=== PATIENT | female | born 1950 | race Caucasian/White ===

== ENCOUNTER 2017-12-14 12:51 | Emergency (ER) | payer MEDICARE, OTHER ==
[2017-12-14] MEDS: LORAZEPAM 2 MG INJ IV ×2 (15:38→16:39)
[2017-12-14] MEDS: DIPHENHYDRAMINE 50 MG INJ IV (15:38)
== END 2017-12-14 17:07 | disposition home or self-care (01) ==
LOC: FTE 12:51
DX: F41.9 Anxiety disorder, unspecified (principal); E11.9 Type 2 diabetes mellitus without complications; J44.9 Chronic obstructive pulmonary disease, unspecified
CPT/HCPCS: 96374; 96375; 96376; 99284-25

== ENCOUNTER 2018-01-04 21:31 | Inpatient (IN) | payer MEDICARE, OTHER ==
[2018-01-04 22:23] LABS: ADD MAN DIFF? NO
[2018-01-04 22:28] LABS: BASOPHIL # 0.1 10^3/ul (0.0-0.1); BASOPHILS % 0.4 % (0.0-2.0); EOSINOPHILS # 0.5 10^3/ul (0.0-0.5); EOSINOPHILS % 4.8 % (0.0-7.0); HEMATOCRIT 37.8 % (37.0-47.0); HEMOGLOBIN 11.5 g/dl (12.0-16.0); LYMPHOCYTES # 1.4 10^3/ul (0.8-2.9); LYMPHOCYTES % 12.3 % (15.0-51.0); MEAN CORPUSCULAR HEMOGLOBIN 26.7 pg (29.0-33.0); MEAN CORPUSCULAR HGB CONC 30.4 g/dl (32.0-37.0); MEAN CORPUSCULAR VOLUME 87.9 fl (82.0-101.0); MONOCYTE # 0.8 10^3/ul (0.3-0.9); NEUTROPHIL # 8.5 10^3/ul (1.6-7.5); NEUTROPHILS % 75.1 % (39.0-77.0); PLATELET COUNT 374 10^3/UL (140-415); RED CELL DISTRIBUTION WIDTH 15.5 % (11.5-14.5)
[2018-01-04 22:28] LABS: WHITE BLOOD COUNT 11.3 10^3/ul (4.8-10.8)
[2018-01-04] MEDS: SOD CHLORIDE 0.9% 1,000 ML IV (22:37)
[2018-01-04] MEDS: ONDANSETRON 4 MG INJ IV (22:38)
[2018-01-04 22:46] LABS: LACTIC ACID 0.8 mmol/L (0.5-2.0)
[2018-01-04 22:46] LABS: ALANINE AMINOTRANSFERASE 25 IU/L (13-69); ALBUMIN 3.5 g/dl (3.3-4.9); ALBUMIN/GLOBULIN RATIO 1.29; ALKALINE PHOSPHATASE 86 IU/L (42-121); ANION GAP 12 (8-16); ASPARTATE AMINO TRANSFERASE 23 IU/L (15-46); BILIRUBIN,INDIRECT 0.5 mg/dl (0-1.1); BILIRUBIN,TOTAL 0.5 mg/dl (0.2-1.3); BLOOD UREA NITROGEN 19 mg/dl (7-20); CALCIUM 9.7 mg/dl (8.4-10.2); CARBON DIOXIDE 31 mmol/L (21-31); CHLORIDE 104 mmol/L (97-110); CREATININE 1.38 mg/dl (0.44-1.00); GLUCOSE 109 mg/dl (70-220); LIPASE 167 U/L (23-300); POTASSIUM 3.5 mmol/L (3.5-5.1); SODIUM 143 mmol/L (135-144); TOTAL PROTEIN 6.2 g/dl (6.1-8.1)
[2018-01-04 22:56] LABS: ADD UMIC YES; UR ASCORBIC ACID NEGATIVE (NEGATIVE); UR BILIRUBIN (Dip) NEGATIVE (NEGATIVE); UR BLOOD (Dip) 1+ mg/dL (NEGATIVE); UR CLARITY SLIGHTLY CLOUDY (CLEAR); UR COLOR YELLOW (YELLOW); UR GLUCOSE (Dip) NEGATIVE (NEGATIVE); UR KETONES (Dip) TRACE mg/dL (NEGATIVE); UR LEUKOCYTE ESTERASE (Dip) 1+ Leu/ul (NEGATIVE); UR MUCUS FEW /HPF (NONE SEEN); UR NITRITE (Dip) NEGATIVE (NEGATIVE); UR RBC 2 /HPF (0-5); UR SPECIFIC GRAVITY (Dip) 1.021 (1.003-1.030); UR TOTAL PROTEIN (Dip) 1+ mg/dl (NEGATIVE); UR UROBILINOGEN (Dip) 1+ mg/dL (NEGATIVE); UR WBC 24 /HPF (0-5)
[2018-01-04 22:58] LABS: TROPONIN-I < 0.012 ng/ml (0.00-0.12)
[2018-01-05] MEDS: CEFEPIME 1GM/50 ML (PMX) 50 ML IVPB (00:10)
[2018-01-05] MEDS ORDERED: morphine 2 MG INJ IV (00:30)
[2018-01-05] MEDS ORDERED: ONDANSETRON 4 MG INJ IV (00:30)
[2018-01-05] MEDS ORDERED: NACL 0.9% 3 ML SYG IV (00:30)
[2018-01-05] MEDS ORDERED: ALBUTEROL HFA 8 GM INHALER INH (00:30)
[2018-01-05] MEDS ORDERED: HYDROCODONE/APAP (5/325) TAB PO (00:30)
[2018-01-05] MEDS ORDERED: ACETAMINOPHEN 325 MG TAB PO ×2 (00:30)
[2018-01-05] MEDS ORDERED: MAGNESIUM HYDROXIDE 30ML CUP PO (00:30)
[2018-01-05] MEDS ORDERED: DOCUSATE SODIUM 100 MG CAP PO (00:30)
[2018-01-05] MEDS: LORAZEPAM 2 MG INJ IV ×2 (01:06→01:07)
[2018-01-05] MEDS: SOD CHLORIDE 0.9% 1,000 ML IV ×2 (03:51→12:13)
[2018-01-05] MEDS ORDERED: PANTOPRAZOLE (EC) 40 MG TAB PO (06:00)
[2018-01-05 06:10] LABS: ADD MAN DIFF? NO
[2018-01-05 06:14] LABS: BASOPHILS % 0.4 % (0.0-2.0); EOSINOPHILS # 0.5 10^3/ul (0.0-0.5); EOSINOPHILS % 5.2 % (0.0-7.0); HEMATOCRIT 35.3 % (37.0-47.0); HEMOGLOBIN 10.7 g/dl (12.0-16.0); LYMPHOCYTES # 1.7 10^3/ul (0.8-2.9); MEAN CORPUSCULAR HEMOGLOBIN 26.9 pg (29.0-33.0); MEAN CORPUSCULAR HGB CONC 30.3 g/dl (32.0-37.0); MEAN CORPUSCULAR VOLUME 88.7 fl (82.0-101.0); MEAN PLATELET VOLUME 9.9 fl (7.4-10.4); MONOCYTE # 0.9 10^3/ul (0.3-0.9); MONOCYTES % 8.9 % (0.0-11.0); NEUTROPHIL # 7.2 10^3/ul (1.6-7.5); NEUTROPHILS % 69.2 % (39.0-77.0); PLATELET COUNT 337 10^3/UL (140-415); RED BLOOD COUNT 3.98 10^6/ul (4.20-5.40); RED CELL DISTRIBUTION WIDTH 15.3 % (11.5-14.5)
[2018-01-05 06:14] LABS: WHITE BLOOD COUNT 10.4 10^3/ul (4.8-10.8)
[2018-01-05 06:35] LABS: ANION GAP 12 (8-16)
[2018-01-05 06:38] LABS: ALANINE AMINOTRANSFERASE 24 IU/L (13-69); ALBUMIN 3.4 g/dl (3.3-4.9); ALBUMIN/GLOBULIN RATIO 1.36; ALKALINE PHOSPHATASE 81 IU/L (42-121); ASPARTATE AMINO TRANSFERASE 21 IU/L (15-46); BILIRUBIN,INDIRECT 0.5 mg/dl (0-1.1); BILIRUBIN,TOTAL 0.5 mg/dl (0.2-1.3); BLOOD UREA NITROGEN 16 mg/dl (7-20); CALCIUM 9.3 mg/dl (8.4-10.2); CARBON DIOXIDE 29 mmol/L (21-31); CHLORIDE 105 mmol/L (97-110); CREATININE 1.22 mg/dl (0.44-1.00); GLUCOSE 108 mg/dl (70-220); POTASSIUM 3.6 mmol/L (3.5-5.1); SODIUM 142 mmol/L (135-144); TOTAL PROTEIN 5.9 g/dl (6.1-8.1)
[2018-01-05] MEDS: PAROXETINE 20 MG TAB PO ×2 (08:46→20:18)
[2018-01-05] MEDS: SERTRALINE 100 MG TAB PO (08:46)
[2018-01-05] MEDS: FERROUS SULFATE (EC) 325 MG TAB PO (08:46)
[2018-01-05] MEDS: CEFEPIME 1GM/50 ML (PMX) 50 ML IV ×2 (08:47→20:18)
[2018-01-05] MEDS: PANTOPRAZOLE (EC) 40 MG TAB PO (08:47)
[2018-01-05] MEDS: AMLODIPINE 5 MG TAB PO (08:47)
[2018-01-05] MEDS: ENOXAPARIN 40 MG/0.4 ML SYG SC (08:48)
[2018-01-05] MEDS: LITHIUM CARBONATE 300 MG CAP PO ×3 (09:39→20:19)
[2018-01-05] MEDS: SALMETEROL/FLUTICASONE 250/50 INHA INH ×2 (09:39→20:18)
[2018-01-05] MEDS: LORAZEPAM 1 MG TAB PO (11:10)
[2018-01-05] MEDS: MONTELUKAST 10 MG TAB PO (20:18)
[2018-01-05] MEDS: traZODone 100 MG TAB PO (20:18)
[2018-01-06] MEDS: SOD CHLORIDE 0.9% 1,000 ML IV ×2 (01:36→13:33)
[2018-01-06 06:17] LABS: ADD MAN DIFF? NO
[2018-01-06 06:20] LABS: BASOPHIL # 0.1 10^3/ul (0.0-0.1); BASOPHILS % 0.5 % (0.0-2.0); EOSINOPHILS # 0.3 10^3/ul (0.0-0.5); EOSINOPHILS % 3.2 % (0.0-7.0); HEMATOCRIT 34.1 % (37.0-47.0); HEMOGLOBIN 10.4 g/dl (12.0-16.0); LYMPHOCYTES # 1.2 10^3/ul (0.8-2.9); LYMPHOCYTES % 11.1 % (15.0-51.0); MEAN CORPUSCULAR HEMOGLOBIN 26.9 pg (29.0-33.0); MEAN CORPUSCULAR HGB CONC 30.5 g/dl (32.0-37.0); MEAN CORPUSCULAR VOLUME 88.1 fl (82.0-101.0); MEAN PLATELET VOLUME 10.3 fl (7.4-10.4); MONOCYTE # 0.9 10^3/ul (0.3-0.9); MONOCYTES % 8.8 % (0.0-11.0); PLATELET COUNT 337 10^3/UL (140-415); RED BLOOD COUNT 3.87 10^6/ul (4.20-5.40); RED CELL DISTRIBUTION WIDTH 15.4 % (11.5-14.5)
[2018-01-06 06:20] LABS: WHITE BLOOD COUNT 10.5 10^3/ul (4.8-10.8)
[2018-01-06 06:40] LABS: AMMONIA < 9 umol/l (9-30)
[2018-01-06 06:46] LABS: PHOSPHORUS 3.1 mg/dl (2.5-4.9)
[2018-01-06 06:46] LABS: MAGNESIUM 1.9 mg/dl (1.7-2.5)
[2018-01-06 06:53] LABS: ALANINE AMINOTRANSFERASE 21 IU/L (13-69); ALBUMIN 3.3 g/dl (3.3-4.9); ALBUMIN/GLOBULIN RATIO 1.32; ALKALINE PHOSPHATASE 86 IU/L (42-121); ANION GAP 13 (8-16); ASPARTATE AMINO TRANSFERASE 25 IU/L (15-46); BILIRUBIN,INDIRECT 0.6 mg/dl (0-1.1); BILIRUBIN,TOTAL 0.6 mg/dl (0.2-1.3); BLOOD UREA NITROGEN 9 mg/dl (7-20); CALCIUM 9.3 mg/dl (8.4-10.2); CARBON DIOXIDE 27 mmol/L (21-31); CHLORIDE 108 mmol/L (97-110); CREATININE 0.95 mg/dl (0.44-1.00); GLUCOSE 112 mg/dl (70-220); POTASSIUM 3.5 mmol/L (3.5-5.1); SODIUM 144 mmol/L (135-144); TOTAL PROTEIN 5.8 g/dl (6.1-8.1)
[2018-01-06] MEDS: SERTRALINE 100 MG TAB PO (08:38)
[2018-01-06] MEDS: FERROUS SULFATE (EC) 325 MG TAB PO (08:39)
[2018-01-06] MEDS: PANTOPRAZOLE (EC) 40 MG TAB PO (08:39)
[2018-01-06] MEDS: PAROXETINE 20 MG TAB PO ×2 (08:39→21:32)
[2018-01-06] MEDS: CEFEPIME 1GM/50 ML (PMX) 50 ML IV ×2 (08:43→21:32)
[2018-01-06] MEDS: AMLODIPINE 5 MG TAB PO (08:47)
[2018-01-06] MEDS: ENOXAPARIN 40 MG/0.4 ML SYG SC (08:48)
[2018-01-06] MEDS: SALMETEROL/FLUTICASONE 250/50 INHA INH ×2 (09:56→21:32)
[2018-01-06] MEDS: LITHIUM CARBONATE 300 MG CAP PO ×3 (09:56→21:32)
[2018-01-06] MEDS: LORAZEPAM 1 MG TAB PO ×2 (11:11→15:28)
[2018-01-06] MEDS: DEXTROSE 5%-0.45% NACL 1,000 ML IV (14:25)
[2018-01-06] MEDS: traZODone 100 MG TAB PO (21:32)
[2018-01-06] MEDS: MONTELUKAST 10 MG TAB PO (21:33)
[2018-01-07] MEDS: DEXTROSE 5%-0.45% NACL 1,000 ML IV ×2 (05:06→16:44)
[2018-01-07 06:25] LABS: ADD UMIC NO; UR ASCORBIC ACID NEGATIVE (NEGATIVE); UR BILIRUBIN (Dip) NEGATIVE (NEGATIVE); UR BLOOD (Dip) NEGATIVE (NEGATIVE); UR CLARITY CLEAR (CLEAR); UR COLOR YELLOW (YELLOW); UR GLUCOSE (Dip) NEGATIVE (NEGATIVE); UR KETONES (Dip) NEGATIVE (NEGATIVE); UR LEUKOCYTE ESTERASE (Dip) NEGATIVE Leu/ul (NEGATIVE); UR NITRITE (Dip) NEGATIVE (NEGATIVE); UR SPECIFIC GRAVITY (Dip) 1.009 (1.003-1.030); UR TOTAL PROTEIN (Dip) NEGATIVE (NEGATIVE); UR UROBILINOGEN (Dip) NEGATIVE (NEGATIVE)
[2018-01-07] MEDS: PANTOPRAZOLE (EC) 40 MG TAB PO (08:00)
[2018-01-07 08:20] LABS: ADD MAN DIFF? NO
[2018-01-07 08:21] LABS: WHITE BLOOD COUNT 13.8 10^3/ul (4.8-10.8)
[2018-01-07 08:21] LABS: BASOPHILS % 0.3 % (0.0-2.0); EOSINOPHILS # 0.2 10^3/ul (0.0-0.5); EOSINOPHILS % 1.2 % (0.0-7.0); HEMATOCRIT 35.6 % (37.0-47.0); HEMOGLOBIN 11.1 g/dl (12.0-16.0); MEAN CORPUSCULAR HEMOGLOBIN 26.9 pg (29.0-33.0); MEAN CORPUSCULAR HGB CONC 31.2 g/dl (32.0-37.0); MEAN CORPUSCULAR VOLUME 86.4 fl (82.0-101.0); MEAN PLATELET VOLUME 9.9 fl (7.4-10.4); MONOCYTE # 1.5 10^3/ul (0.3-0.9); MONOCYTES % 10.5 % (0.0-11.0); NEUTROPHIL # 11.2 10^3/ul (1.6-7.5); NEUTROPHILS % 80.6 % (39.0-77.0); PLATELET COUNT 358 10^3/UL (140-415); RED BLOOD COUNT 4.12 10^6/ul (4.20-5.40); RED CELL DISTRIBUTION WIDTH 15.4 % (11.5-14.5)
[2018-01-07 08:52] LABS: PHOSPHORUS 3.1 mg/dl (2.5-4.9)
[2018-01-07 08:52] LABS: MAGNESIUM 1.5 mg/dl (1.7-2.5)
[2018-01-07 08:54] LABS: ALANINE AMINOTRANSFERASE 25 IU/L (13-69); ALBUMIN 3.4 g/dl (3.3-4.9); ALBUMIN/GLOBULIN RATIO 1.25; ALKALINE PHOSPHATASE 99 IU/L (42-121); ANION GAP 9 (8-16); ASPARTATE AMINO TRANSFERASE 21 IU/L (15-46); BILIRUBIN,INDIRECT 0.8 mg/dl (0-1.1); BILIRUBIN,TOTAL 0.8 mg/dl (0.2-1.3); BLOOD UREA NITROGEN 6 mg/dl (7-20); CALCIUM 9.7 mg/dl (8.4-10.2); CARBON DIOXIDE 30 mmol/L (21-31); CHLORIDE 108 mmol/L (97-110); GLUCOSE 161 mg/dl (70-220); POTASSIUM 3.5 mmol/L (3.5-5.1); SODIUM 143 mmol/L (135-144); TOTAL PROTEIN 6.1 g/dl (6.1-8.1)
[2018-01-07] MEDS: FERROUS SULFATE (EC) 325 MG TAB PO (09:00)
[2018-01-07] MEDS: PAROXETINE 20 MG TAB PO ×2 (09:00→21:00)
[2018-01-07] MEDS: SALMETEROL/FLUTICASONE 250/50 INHA INH ×2 (09:00→21:00)
[2018-01-07] MEDS: LITHIUM CARBONATE 300 MG CAP PO ×3 (09:00→21:00)
[2018-01-07] MEDS: SERTRALINE 100 MG TAB PO (09:00)
[2018-01-07] MEDS: CEFEPIME 1GM/50 ML (PMX) 50 ML IV (09:34)
[2018-01-07] MEDS: AMLODIPINE 5 MG TAB PO (09:35)
[2018-01-07] MEDS: ENOXAPARIN 40 MG/0.4 ML SYG SC (09:35)
[2018-01-07 10:31] LABS: AADO2 Arterial 105.3 mmHg (7.0-24.0); Allen Test ACCEPTAB; Arterial Base Excess 0.4 mmol/L (-3.0-3); Arterial Blood Gas Oxygen Sat 95.5 mmHG (95.0-98.0); Arterial COHb 0.2 % (0.0-3.0); Arterial HCO3 25.7 mmol/L (22.0-26.0); Arterial MetHb 0.3 % (0.0-1.5); Arterial Total Hemglobin 12.4 g/dl (12.0-18.0); Arterial pCO2 44.1 mmhg (35-45); MODE NASAL CANNULA; Site Left Radial
[2018-01-07] MEDS: MAGNESIUM SULFATE 2 GM/50 ML 50 ML IVPB (10:47)
[2018-01-07] MEDS: CLONIDINE 0.1 MG/24 HR PATCH TRANSDERM (17:21)
[2018-01-07] MEDS: LORAZEPAM 2 MG INJ IV (17:25)
[2018-01-07] MEDS: hydrALAzine 20 MG INJ IV (18:12)
[2018-01-07] MEDS: metroNIDAZOLE 500 MG/NS (PMX) 100 ML IVPB ×2 (18:14→22:13)
[2018-01-07] MEDS: VANCOMYCIN HCL 250 MG/5ML POSYG PO (18:16)
[2018-01-07] MEDS: MULTIVITAMINS 10 ML, THIAMINE 100 MG, FOLIC ACID 1 MG in SOD CHLORIDE 0.9% 1,000 ML IVPB (20:44)
[2018-01-07] MEDS: MONTELUKAST 10 MG TAB PO (21:00)
[2018-01-07] MEDS: traZODone 100 MG TAB PO (21:00)
[2018-01-08] MEDS: VANCOMYCIN HCL 250 MG/5ML POSYG PO ×4 (06:00→17:13)
[2018-01-08] MEDS: DEXTROSE 5%-0.45% NACL 1,000 ML IV ×2 (06:32→19:20)
[2018-01-08] MEDS: metroNIDAZOLE 500 MG/NS (PMX) 100 ML IVPB ×3 (06:35→21:55)
[2018-01-08] MEDS: PANTOPRAZOLE (EC) 40 MG TAB PO (06:37)
[2018-01-08 07:11] LABS: ADD MAN DIFF? NO
[2018-01-08 07:22] LABS: WHITE BLOOD COUNT 15.9 10^3/ul (4.8-10.8)
[2018-01-08 07:22] LABS: BASOPHILS % 0.2 % (0.0-2.0); EOSINOPHILS % 0.1 % (0.0-7.0); HEMATOCRIT 35.4 % (37.0-47.0); LYMPHOCYTES # 1.3 10^3/ul (0.8-2.9); LYMPHOCYTES % 8.2 % (15.0-51.0); MEAN CORPUSCULAR HEMOGLOBIN 26.8 pg (29.0-33.0); MEAN CORPUSCULAR HGB CONC 31.1 g/dl (32.0-37.0); MEAN CORPUSCULAR VOLUME 86.3 fl (82.0-101.0); MEAN PLATELET VOLUME 10.2 fl (7.4-10.4); MONOCYTE # 1.5 10^3/ul (0.3-0.9); MONOCYTES % 9.4 % (0.0-11.0); NEUTROPHIL # 12.9 10^3/ul (1.6-7.5); NEUTROPHILS % 81.5 % (39.0-77.0); PLATELET COUNT 373 10^3/UL (140-415); RED CELL DISTRIBUTION WIDTH 15.6 % (11.5-14.5)
[2018-01-08 07:44] LABS: ALANINE AMINOTRANSFERASE 21 IU/L (13-69); ALBUMIN 3.1 g/dl (3.3-4.9); ALBUMIN/GLOBULIN RATIO 1.19; ALKALINE PHOSPHATASE 99 IU/L (42-121); ANION GAP 12 (8-16); ASPARTATE AMINO TRANSFERASE 23 IU/L (15-46); BILIRUBIN,INDIRECT 0.9 mg/dl (0-1.1); BILIRUBIN,TOTAL 0.9 mg/dl (0.2-1.3); BLOOD UREA NITROGEN 9 mg/dl (7-20); CALCIUM 9.8 mg/dl (8.4-10.2); CARBON DIOXIDE 28 mmol/L (21-31); CHLORIDE 110 mmol/L (97-110); CREATININE 0.73 mg/dl (0.44-1.00); GLUCOSE 144 mg/dl (70-220); SODIUM 146 mmol/L (135-144); TOTAL PROTEIN 5.7 g/dl (6.1-8.1)
[2018-01-08 07:46] LABS: PHOSPHORUS 3.9 mg/dl (2.5-4.9)
[2018-01-08 07:46] LABS: MAGNESIUM 2.1 mg/dl (1.7-2.5)
[2018-01-08] MEDS: SALMETEROL/FLUTICASONE 250/50 INHA INH ×2 (09:00→21:00)
[2018-01-08] MEDS: PAROXETINE 20 MG TAB PO ×2 (09:00→21:00)
[2018-01-08] MEDS: AMLODIPINE 5 MG TAB PO (09:00)
[2018-01-08] MEDS ORDERED: THIAMINE 200 MG INJ IM (09:00)
[2018-01-08] MEDS: FERROUS SULFATE (EC) 325 MG TAB PO (09:00)
[2018-01-08] MEDS: LITHIUM CARBONATE 300 MG CAP PO ×3 (09:00→21:00)
[2018-01-08] MEDS: SERTRALINE 100 MG TAB PO (09:00)
[2018-01-08 09:15] LABS: AADO2 Arterial 86.2 mmHg (7.0-24.0); Allen Test ACCEPTAB; Arterial Base Excess -0.4 mmol/L (-3.0-3); Arterial Blood Gas Oxygen Sat 97.7 mmHG (95.0-98.0); Arterial COHb 0.3 % (0.0-3.0); Arterial MetHb 0.4 % (0.0-1.5); Arterial Total Hemglobin 11.2 g/dl (12.0-18.0); Arterial pCO2 38.8 mmhg (35-45); MODE NASAL CANNULA; Site Right Radial
[2018-01-08] MEDS: ENOXAPARIN 40 MG/0.4 ML SYG SC (11:28)
[2018-01-08] MEDS: MULTIVITAMINS 10 ML, THIAMINE 100 MG, FOLIC ACID 1 MG in SOD CHLORIDE 0.9% 1,000 ML IVPB (12:54)
[2018-01-08] MEDS: [UNRECOGNIZED DRUG - REMARK] XX (13:53)
[2018-01-08] MEDS ORDERED: VANCOMYCIN IV PER PHARMACY XX (15:00)
[2018-01-08] MEDS: CEFTRIAXONE 1 GM/50 ML (PMX) 50 ML IVPB (16:45)
[2018-01-08] MEDS: FUROSEMIDE 40 MG INJ IV (16:45)
[2018-01-08] MEDS: VANCOMYCIN 1.5 GM in SOD CHLORIDE 0.9% 250 ML IVPB (17:17)
[2018-01-08] MEDS: traZODone 100 MG TAB PO (21:00)
[2018-01-08] MEDS: MONTELUKAST 10 MG TAB PO (21:00)
[2018-01-08] MEDS: LORAZEPAM 2 MG INJ IV (21:17)
[2018-01-09] MEDS: CEFTRIAXONE 1 GM/50 ML (PMX) 50 ML IVPB ×2 (03:11→16:53)
[2018-01-09] MEDS: VANCOMYCIN 1 GM 250 ML IVPB ×2 (05:25→17:30)
[2018-01-09] MEDS: DEXTROSE 5%-0.45% NACL 1,000 ML IV (05:50)
[2018-01-09] MEDS: FUROSEMIDE 40 MG INJ IV (05:52)
[2018-01-09] MEDS: VANCOMYCIN HCL 250 MG/5ML POSYG PO ×4 (06:00→17:04)
[2018-01-09] MEDS: metroNIDAZOLE 500 MG/NS (PMX) 100 ML IVPB ×3 (06:20→23:14)
[2018-01-09] MEDS: [UNRECOGNIZED DRUG - REMARK] XX ×4 (07:40→21:06)
[2018-01-09] MEDS: PANTOPRAZOLE (EC) 40 MG TAB PO (10:14)
[2018-01-09] MEDS: MULTIVITAMINS 10 ML, THIAMINE 100 MG, FOLIC ACID 1 MG in SOD CHLORIDE 0.9% 1,000 ML IVPB ×2 (10:14→10:16)
[2018-01-09] MEDS: SALMETEROL/FLUTICASONE 250/50 INHA INH ×2 (10:14→21:00)
[2018-01-09] MEDS: FERROUS SULFATE (EC) 325 MG TAB PO (10:15)
[2018-01-09] MEDS: PAROXETINE 20 MG TAB PO ×2 (10:15→20:53)
[2018-01-09] MEDS: SERTRALINE 100 MG TAB PO (10:15)
[2018-01-09] MEDS: AMLODIPINE 5 MG TAB PO (10:15)
[2018-01-09] MEDS: LITHIUM CARBONATE 300 MG CAP PO ×3 (10:15→20:54)
[2018-01-09] MEDS: ENOXAPARIN 40 MG/0.4 ML SYG SC (10:15)
[2018-01-09] MEDS: traZODone 100 MG TAB PO (20:54)
[2018-01-09] MEDS: MONTELUKAST 10 MG TAB PO (20:54)
[2018-01-10] MEDS: VANCOMYCIN HCL 250 MG/5ML POSYG PO ×4 (00:48→17:08)
[2018-01-10] MEDS: DEXTROSE 5%-0.45% NACL 1,000 ML IV (00:49)
[2018-01-10] MEDS: CEFTRIAXONE 1 GM/50 ML (PMX) 50 ML IVPB ×2 (04:11→17:03)
[2018-01-10 04:29] LABS: ADD MAN DIFF? NO
[2018-01-10 04:30] LABS: BASOPHIL # 0.1 10^3/ul (0.0-0.1); BASOPHILS % 0.5 % (0.0-2.0); EOSINOPHILS # 0.2 10^3/ul (0.0-0.5); EOSINOPHILS % 1.5 % (0.0-7.0); HEMATOCRIT 36.1 % (37.0-47.0); HEMOGLOBIN 11.3 g/dl (12.0-16.0); LYMPHOCYTES # 1.2 10^3/ul (0.8-2.9); LYMPHOCYTES % 11.6 % (15.0-51.0); MEAN CORPUSCULAR HEMOGLOBIN 26.5 pg (29.0-33.0); MEAN CORPUSCULAR HGB CONC 31.3 g/dl (32.0-37.0); MEAN CORPUSCULAR VOLUME 84.7 fl (82.0-101.0); MEAN PLATELET VOLUME 10.4 fl (7.4-10.4); MONOCYTES % 9.7 % (0.0-11.0); NEUTROPHIL # 7.9 10^3/ul (1.6-7.5); NEUTROPHILS % 76.3 % (39.0-77.0); PLATELET COUNT 424 10^3/UL (140-415); RED BLOOD COUNT 4.26 10^6/ul (4.20-5.40); RED CELL DISTRIBUTION WIDTH 15.9 % (11.5-14.5)
[2018-01-10 04:30] LABS: WHITE BLOOD COUNT 10.4 10^3/ul (4.8-10.8)
[2018-01-10 04:53] LABS: ALANINE AMINOTRANSFERASE 24 IU/L (13-69); ALBUMIN 3.5 g/dl (3.3-4.9); ALBUMIN/GLOBULIN RATIO 1.16; ALKALINE PHOSPHATASE 111 IU/L (42-121); ANION GAP 16 (8-16); ASPARTATE AMINO TRANSFERASE 14 IU/L (15-46); BILIRUBIN,INDIRECT 0.5 mg/dl (0-1.1); BILIRUBIN,TOTAL 0.5 mg/dl (0.2-1.3); BLOOD UREA NITROGEN 13 mg/dl (7-20); CALCIUM 9.6 mg/dl (8.4-10.2); CARBON DIOXIDE 27 mmol/L (21-31); CHLORIDE 112 mmol/L (97-110); CREATININE 0.77 mg/dl (0.44-1.00); GLUCOSE 184 mg/dl (70-220); SODIUM 152 mmol/L (135-144); TOTAL PROTEIN 6.5 g/dl (6.1-8.1)
[2018-01-10 04:54] LABS: PHOSPHORUS 2.6 mg/dl (2.5-4.9)
[2018-01-10 04:54] LABS: MAGNESIUM 1.5 mg/dl (1.7-2.5)
[2018-01-10 05:06] LABS: POTASSIUM 2.5 mmol/L (3.5-5.1)
[2018-01-10] MEDS: VANCOMYCIN 1 GM 250 ML IVPB ×2 (05:55→17:03)
[2018-01-10] MEDS: [UNRECOGNIZED DRUG - REMARK] XX ×2 (06:00→12:15)
[2018-01-10] MEDS: POTASSIUM CHLORIDE (SR) 20 MEQ TAB PO (06:00)
[2018-01-10] MEDS: metroNIDAZOLE 500 MG/NS (PMX) 100 ML IVPB ×3 (06:37→21:26)
[2018-01-10] MEDS: PANTOPRAZOLE (EC) 40 MG TAB PO (06:39)
[2018-01-10] MEDS: FERROUS SULFATE (EC) 325 MG TAB PO (09:00)
[2018-01-10] MEDS: POTASSIUM CHLORIDE 100 ML IVPB ×2 (09:00→11:03)
[2018-01-10] MEDS: SALMETEROL/FLUTICASONE 250/50 INHA INH ×2 (09:00→21:26)
[2018-01-10] MEDS: AMLODIPINE 5 MG TAB PO (09:01)
[2018-01-10] MEDS: PAROXETINE 20 MG TAB PO ×2 (09:01→21:25)
[2018-01-10] MEDS: SERTRALINE 100 MG TAB PO (09:01)
[2018-01-10] MEDS: LITHIUM CARBONATE 300 MG CAP PO ×3 (09:01→21:25)
[2018-01-10] MEDS: ENOXAPARIN 40 MG/0.4 ML SYG SC (09:53)
[2018-01-10] MEDS: MULTIVITAMINS 10 ML, THIAMINE 100 MG, FOLIC ACID 1 MG in SOD CHLORIDE 0.9% 1,000 ML IVPB (12:15)
[2018-01-10] MEDS: MAGNESIUM SULFATE 2 GM/50 ML 50 ML IVPB (17:03)
[2018-01-10] MEDS: traZODone 100 MG TAB PO (21:25)
[2018-01-10] MEDS: MONTELUKAST 10 MG TAB PO (21:25)
[2018-01-10] MEDS: hydrALAzine 20 MG INJ IV (22:13)
[2018-01-10] MEDS: ZOLPIDEM 5 MG TAB PO (23:39)
[2018-01-11] MEDS: VANCOMYCIN HCL 250 MG/5ML POSYG PO ×3 (00:40→12:27)
[2018-01-11] MEDS: hydrALAzine 20 MG INJ IV (01:44)
[2018-01-11] MEDS: CEFTRIAXONE 1 GM/50 ML (PMX) 50 ML IVPB (04:40)
[2018-01-11] MEDS: VANCOMYCIN 1 GM 250 ML IVPB (04:41)
[2018-01-11] MEDS: metroNIDAZOLE 500 MG/NS (PMX) 100 ML IVPB ×2 (06:00→14:25)
[2018-01-11] MEDS: PANTOPRAZOLE (EC) 40 MG TAB PO (06:32)
[2018-01-11 06:43] LABS: ADD MAN DIFF? NO
[2018-01-11 06:45] LABS: WHITE BLOOD COUNT 9.8 10^3/ul (4.8-10.8)
[2018-01-11 06:45] LABS: BASOPHILS % 0.4 % (0.0-2.0); EOSINOPHILS # 0.6 10^3/ul (0.0-0.5); HEMATOCRIT 37.3 % (37.0-47.0); HEMOGLOBIN 11.5 g/dl (12.0-16.0); LYMPHOCYTES # 1.4 10^3/ul (0.8-2.9); LYMPHOCYTES % 13.7 % (15.0-51.0); MEAN CORPUSCULAR HEMOGLOBIN 26.7 pg (29.0-33.0); MEAN CORPUSCULAR HGB CONC 30.8 g/dl (32.0-37.0); MEAN CORPUSCULAR VOLUME 86.7 fl (82.0-101.0); MEAN PLATELET VOLUME 10.7 fl (7.4-10.4); MONOCYTE # 0.9 10^3/ul (0.3-0.9); MONOCYTES % 9.3 % (0.0-11.0); NEUTROPHIL # 6.9 10^3/ul (1.6-7.5); NEUTROPHILS % 70.3 % (39.0-77.0); PLATELET COUNT 392 10^3/UL (140-415); RED CELL DISTRIBUTION WIDTH 16.5 % (11.5-14.5)
[2018-01-11 07:23] LABS: PHOSPHORUS 3.2 mg/dl (2.5-4.9)
[2018-01-11 07:23] LABS: ANION GAP 18 (8-16); BLOOD UREA NITROGEN 11 mg/dl (7-20); CALCIUM 9.3 mg/dl (8.4-10.2); CARBON DIOXIDE 22 mmol/L (21-31); CHLORIDE 115 mmol/L (97-110); GLUCOSE 156 mg/dl (70-220); POTASSIUM 3.9 mmol/L (3.5-5.1); SODIUM 151 mmol/L (135-144)
[2018-01-11] MEDS: FOLIC ACID 1 MG TAB PO (09:14)
[2018-01-11] MEDS: AMLODIPINE 5 MG TAB PO (09:19)
[2018-01-11] MEDS: SALMETEROL/FLUTICASONE 250/50 INHA INH ×2 (09:19→21:38)
[2018-01-11] MEDS: SERTRALINE 100 MG TAB PO (09:19)
[2018-01-11] MEDS: FERROUS SULFATE (EC) 325 MG TAB PO (09:19)
[2018-01-11] MEDS: LITHIUM CARBONATE 300 MG CAP PO ×3 (09:20→21:38)
[2018-01-11] MEDS: THIAMINE 100 MG TAB PO (09:20)
[2018-01-11] MEDS: PAROXETINE 20 MG TAB PO (09:20)
[2018-01-11] MEDS: MULTIVITAMINS THERAPEUTIC TAB PO (09:20)
[2018-01-11] MEDS: ENOXAPARIN 40 MG/0.4 ML SYG SC (09:21)
[2018-01-11] MEDS: METOPROLOL 25 MG TAB PO ×2 (14:25→21:39)
[2018-01-11] MEDS: MONTELUKAST 10 MG TAB PO (21:37)
[2018-01-11] MEDS: traZODone 100 MG TAB PO (21:37)
[2018-01-12] MEDS: hydrALAzine 20 MG INJ IV ×2 (02:40→08:21)
[2018-01-12] MEDS: ZOLPIDEM 5 MG TAB PO (03:18)
[2018-01-12 06:48] LABS: ADD MAN DIFF? NO
[2018-01-12 06:52] LABS: WHITE BLOOD COUNT 10.5 10^3/ul (4.8-10.8)
[2018-01-12 06:52] LABS: BASOPHIL # 0.1 10^3/ul (0.0-0.1); BASOPHILS % 0.5 % (0.0-2.0); EOSINOPHILS # 0.6 10^3/ul (0.0-0.5); EOSINOPHILS % 6.1 % (0.0-7.0); HEMATOCRIT 36.8 % (37.0-47.0); HEMOGLOBIN 11.5 g/dl (12.0-16.0); LYMPHOCYTES # 1.7 10^3/ul (0.8-2.9); LYMPHOCYTES % 16.1 % (15.0-51.0); MEAN CORPUSCULAR HEMOGLOBIN 26.8 pg (29.0-33.0); MEAN CORPUSCULAR HGB CONC 31.3 g/dl (32.0-37.0); MEAN CORPUSCULAR VOLUME 85.8 fl (82.0-101.0); MEAN PLATELET VOLUME 10.3 fl (7.4-10.4); MONOCYTE # 0.8 10^3/ul (0.3-0.9); MONOCYTES % 7.3 % (0.0-11.0); NEUTROPHIL # 7.3 10^3/ul (1.6-7.5); NEUTROPHILS % 69.5 % (39.0-77.0); PLATELET COUNT 480 10^3/UL (140-415); RED BLOOD COUNT 4.29 10^6/ul (4.20-5.40); RED CELL DISTRIBUTION WIDTH 16.6 % (11.5-14.5)
[2018-01-12 07:12] LABS: PHOSPHORUS 3.7 mg/dl (2.5-4.9)
[2018-01-12 07:12] LABS: MAGNESIUM 1.8 mg/dl (1.7-2.5)
[2018-01-12 07:14] LABS: ANION GAP 15 (8-16); BLOOD UREA NITROGEN 11 mg/dl (7-20); CALCIUM 9.8 mg/dl (8.4-10.2); CARBON DIOXIDE 28 mmol/L (21-31); CHLORIDE 114 mmol/L (97-110); CREATININE 0.79 mg/dl (0.44-1.00); GLUCOSE 174 mg/dl (70-220); SODIUM 154 mmol/L (135-144)
[2018-01-12 07:23] LABS: POTASSIUM 2.8 mmol/L (3.5-5.1)
[2018-01-12] MEDS: SALMETEROL/FLUTICASONE 250/50 INHA INH ×2 (08:23→21:07)
[2018-01-12] MEDS: PANTOPRAZOLE (EC) 40 MG TAB PO (08:24)
[2018-01-12] MEDS: METOPROLOL 25 MG TAB PO ×2 (08:24→21:07)
[2018-01-12] MEDS: LITHIUM CARBONATE 300 MG CAP PO ×3 (08:25→21:06)
[2018-01-12] MEDS: THIAMINE 100 MG TAB PO (08:25)
[2018-01-12] MEDS: FERROUS SULFATE (EC) 325 MG TAB PO (08:25)
[2018-01-12] MEDS: FOLIC ACID 1 MG TAB PO (08:25)
[2018-01-12] MEDS: AMLODIPINE 5 MG TAB PO (08:25)
[2018-01-12] MEDS: SERTRALINE 100 MG TAB PO (08:25)
[2018-01-12] MEDS: MULTIVITAMINS THERAPEUTIC TAB PO (08:25)
[2018-01-12] MEDS: ENOXAPARIN 40 MG/0.4 ML SYG SC (08:29)
[2018-01-12] MEDS: LORAZEPAM 1 MG TAB PO (10:05)
[2018-01-12] MEDS: POTASSIUM CHLORIDE (SR) 20 MEQ TAB PO ×2 (16:57→19:12)
[2018-01-12] MEDS: MONTELUKAST 10 MG TAB PO (21:05)
[2018-01-12] MEDS: traZODone 100 MG TAB PO (21:06)
[2018-01-13 06:56] LABS: ADD MAN DIFF? NO
[2018-01-13 07:02] LABS: WHITE BLOOD COUNT 10.9 10^3/ul (4.8-10.8)
[2018-01-13 07:02] LABS: BASOPHIL # 0.1 10^3/ul (0.0-0.1); BASOPHILS % 0.5 % (0.0-2.0); EOSINOPHILS # 0.8 10^3/ul (0.0-0.5); EOSINOPHILS % 7.1 % (0.0-7.0); HEMATOCRIT 39.2 % (37.0-47.0); HEMOGLOBIN 12.1 g/dl (12.0-16.0); LYMPHOCYTES # 1.7 10^3/ul (0.8-2.9); LYMPHOCYTES % 15.2 % (15.0-51.0); MEAN CORPUSCULAR HEMOGLOBIN 26.9 pg (29.0-33.0); MEAN CORPUSCULAR HGB CONC 30.9 g/dl (32.0-37.0); MEAN CORPUSCULAR VOLUME 87.1 fl (82.0-101.0); MEAN PLATELET VOLUME 10.5 fl (7.4-10.4); MONOCYTE # 0.8 10^3/ul (0.3-0.9); MONOCYTES % 7.7 % (0.0-11.0); NEUTROPHIL # 7.5 10^3/ul (1.6-7.5); NEUTROPHILS % 68.8 % (39.0-77.0); PLATELET COUNT 463 10^3/UL (140-415); RED CELL DISTRIBUTION WIDTH 16.4 % (11.5-14.5)
[2018-01-13 07:27] LABS: ANION GAP 12 (8-16); BLOOD UREA NITROGEN 14 mg/dl (7-20); CALCIUM 9.6 mg/dl (8.4-10.2); CARBON DIOXIDE 30 mmol/L (21-31); CHLORIDE 117 mmol/L (97-110); CREATININE 0.84 mg/dl (0.44-1.00); GLUCOSE 158 mg/dl (70-220); SODIUM 156 mmol/L (135-144)
[2018-01-13 07:31] LABS: POTASSIUM 2.9 mmol/L (3.5-5.1)
[2018-01-13 07:32] LABS: MAGNESIUM 1.9 mg/dl (1.7-2.5)
[2018-01-13 07:32] LABS: PHOSPHORUS 3.3 mg/dl (2.5-4.9)
[2018-01-13] MEDS: PANTOPRAZOLE (EC) 40 MG TAB PO (09:28)
[2018-01-13] MEDS: AMLODIPINE 5 MG TAB PO (09:28)
[2018-01-13] MEDS: MULTIVITAMINS THERAPEUTIC TAB PO (09:29)
[2018-01-13] MEDS: LITHIUM CARBONATE 300 MG CAP PO ×3 (09:29→21:26)
[2018-01-13] MEDS: FERROUS SULFATE (EC) 325 MG TAB PO (09:29)
[2018-01-13] MEDS: METOPROLOL 25 MG TAB PO ×2 (09:29→21:27)
[2018-01-13] MEDS: SERTRALINE 100 MG TAB PO (09:29)
[2018-01-13] MEDS: POTASSIUM CHLORIDE (SR) 20 MEQ TAB PO (09:29)
[2018-01-13] MEDS: FOLIC ACID 1 MG TAB PO (09:29)
[2018-01-13] MEDS: SALMETEROL/FLUTICASONE 250/50 INHA INH ×2 (09:30→21:25)
[2018-01-13] MEDS: THIAMINE 100 MG TAB PO (09:30)
[2018-01-13] MEDS: ENOXAPARIN 40 MG/0.4 ML SYG SC (09:49)
[2018-01-13] MEDS: POTASSIUM CHLORIDE 100 ML IVPB ×2 (09:59→12:51)
[2018-01-13] MEDS: traZODone 100 MG TAB PO (21:25)
[2018-01-13] MEDS: MONTELUKAST 10 MG TAB PO (21:25)
[2018-01-14] MEDS: LORAZEPAM 1 MG TAB PO ×2 (03:31→14:31)
[2018-01-14] MEDS: hydrALAzine 20 MG INJ IV (03:33)
[2018-01-14] MEDS: PANTOPRAZOLE (EC) 40 MG TAB PO (06:01)
[2018-01-14 06:07] LABS: ADD MAN DIFF? NO
[2018-01-14 06:10] LABS: BASOPHIL # 0.1 10^3/ul (0.0-0.1); BASOPHILS % 0.5 % (0.0-2.0); EOSINOPHILS # 0.7 10^3/ul (0.0-0.5); EOSINOPHILS % 5.6 % (0.0-7.0); HEMATOCRIT 37.6 % (37.0-47.0); HEMOGLOBIN 11.5 g/dl (12.0-16.0); LYMPHOCYTES # 1.6 10^3/ul (0.8-2.9); LYMPHOCYTES % 12.5 % (15.0-51.0); MEAN CORPUSCULAR HEMOGLOBIN 26.4 pg (29.0-33.0); MEAN CORPUSCULAR HGB CONC 30.6 g/dl (32.0-37.0); MEAN CORPUSCULAR VOLUME 86.2 fl (82.0-101.0); MEAN PLATELET VOLUME 10.4 fl (7.4-10.4); MONOCYTE # 0.9 10^3/ul (0.3-0.9); MONOCYTES % 6.9 % (0.0-11.0); NEUTROPHIL # 9.7 10^3/ul (1.6-7.5); NEUTROPHILS % 73.8 % (39.0-77.0); PLATELET COUNT 447 10^3/UL (140-415); RED BLOOD COUNT 4.36 10^6/ul (4.20-5.40); RED CELL DISTRIBUTION WIDTH 16.5 % (11.5-14.5)
[2018-01-14 06:10] LABS: WHITE BLOOD COUNT 13.1 10^3/ul (4.8-10.8)
[2018-01-14 06:38] LABS: MAGNESIUM 1.6 mg/dl (1.7-2.5)
[2018-01-14 06:38] LABS: PHOSPHORUS 3.3 mg/dl (2.5-4.9)
[2018-01-14 06:39] LABS: ANION GAP 10 (8-16); BLOOD UREA NITROGEN 9 mg/dl (7-20); CALCIUM 9.2 mg/dl (8.4-10.2); CARBON DIOXIDE 31 mmol/L (21-31); CHLORIDE 114 mmol/L (97-110); GLUCOSE 168 mg/dl (70-220); POTASSIUM 3.3 mmol/L (3.5-5.1); SODIUM 152 mmol/L (135-144)
[2018-01-14] MEDS: METOPROLOL 25 MG TAB PO ×2 (09:28→22:12)
[2018-01-14] MEDS: ENOXAPARIN 40 MG/0.4 ML SYG SC (09:28)
[2018-01-14] MEDS: FERROUS SULFATE (EC) 325 MG TAB PO (09:28)
[2018-01-14] MEDS: SALMETEROL/FLUTICASONE 250/50 INHA INH ×2 (09:29→23:53)
[2018-01-14] MEDS: MULTIVITAMINS THERAPEUTIC TAB PO (09:29)
[2018-01-14] MEDS: SERTRALINE 100 MG TAB PO (09:29)
[2018-01-14] MEDS: LITHIUM CARBONATE 300 MG CAP PO ×3 (09:29→22:11)
[2018-01-14] MEDS: FOLIC ACID 1 MG TAB PO (09:29)
[2018-01-14] MEDS: THIAMINE 100 MG TAB PO (09:29)
[2018-01-14] MEDS: AMLODIPINE 5 MG TAB PO (09:29)
[2018-01-14] MEDS: CLONIDINE 0.1 MG/24 HR PATCH TRANSDERM (17:00)
[2018-01-14] MEDS: POTASSIUM CHLORIDE (SR) 20 MEQ TAB PO (18:43)
[2018-01-14] MEDS: traZODone 100 MG TAB PO (22:12)
[2018-01-14] MEDS: MONTELUKAST 10 MG TAB PO (22:12)
[2018-01-15] MEDS: PANTOPRAZOLE (EC) 40 MG TAB PO (05:48)
[2018-01-15 05:49] LABS: WHITE BLOOD COUNT 13.9 10^3/ul (4.8-10.8)
[2018-01-15 05:49] LABS: ADD MAN DIFF? NO; BASOPHIL # 0.1 10^3/ul (0.0-0.1); BASOPHILS % 0.6 % (0.0-2.0); EOSINOPHILS # 0.7 10^3/ul (0.0-0.5); EOSINOPHILS % 4.8 % (0.0-7.0); HEMATOCRIT 36.9 % (37.0-47.0); HEMOGLOBIN 11.3 g/dl (12.0-16.0); LYMPHOCYTES % 14.6 % (15.0-51.0); MEAN CORPUSCULAR HEMOGLOBIN 26.5 pg (29.0-33.0); MEAN CORPUSCULAR HGB CONC 30.6 g/dl (32.0-37.0); MEAN CORPUSCULAR VOLUME 86.6 fl (82.0-101.0); MEAN PLATELET VOLUME 10.1 fl (7.4-10.4); MONOCYTE # 1.1 10^3/ul (0.3-0.9); NEUTROPHIL # 9.9 10^3/ul (1.6-7.5); NEUTROPHILS % 71.4 % (39.0-77.0); PLATELET COUNT 438 10^3/UL (140-415); RED BLOOD COUNT 4.26 10^6/ul (4.20-5.40); RED CELL DISTRIBUTION WIDTH 16.8 % (11.5-14.5)
[2018-01-15 06:26] LABS: ANION GAP 10 (8-16); BLOOD UREA NITROGEN 8 mg/dl (7-20); CALCIUM 8.9 mg/dl (8.4-10.2); CARBON DIOXIDE 32 mmol/L (21-31); CHLORIDE 111 mmol/L (97-110); CREATININE 0.83 mg/dl (0.44-1.00); GLUCOSE 150 mg/dl (70-220); SODIUM 149 mmol/L (135-144)
[2018-01-15 06:36] LABS: PHOSPHORUS 3.8 mg/dl (2.5-4.9)
[2018-01-15 06:36] LABS: MAGNESIUM 1.8 mg/dl (1.7-2.5)
[2018-01-15] MEDS: SERTRALINE 100 MG TAB PO (10:30)
[2018-01-15] MEDS: SALMETEROL/FLUTICASONE 250/50 INHA INH ×2 (10:30→20:10)
[2018-01-15] MEDS: THIAMINE 100 MG TAB PO (10:30)
[2018-01-15] MEDS: FOLIC ACID 1 MG TAB PO (10:30)
[2018-01-15] MEDS: MULTIVITAMINS THERAPEUTIC TAB PO (10:30)
[2018-01-15] MEDS: FERROUS SULFATE (EC) 325 MG TAB PO (10:30)
[2018-01-15] MEDS: LITHIUM CARBONATE 300 MG CAP PO ×3 (10:30→20:11)
[2018-01-15] MEDS: METOPROLOL 25 MG TAB PO ×2 (10:31→20:11)
[2018-01-15] MEDS: AMLODIPINE 5 MG TAB PO (10:31)
[2018-01-15] MEDS: ENOXAPARIN 40 MG/0.4 ML SYG SC (10:39)
[2018-01-15 15:17] LABS: ADD UMIC NO; UR ASCORBIC ACID NEGATIVE (NEGATIVE); UR BILIRUBIN (Dip) NEGATIVE (NEGATIVE); UR BLOOD (Dip) NEGATIVE (NEGATIVE); UR CLARITY CLEAR (CLEAR); UR COLOR YELLOW (YELLOW); UR GLUCOSE (Dip) NEGATIVE (NEGATIVE); UR KETONES (Dip) NEGATIVE (NEGATIVE); UR LEUKOCYTE ESTERASE (Dip) NEGATIVE Leu/ul (NEGATIVE); UR NITRITE (Dip) NEGATIVE (NEGATIVE); UR SPECIFIC GRAVITY (Dip) 1.008 (1.003-1.030); UR TOTAL PROTEIN (Dip) NEGATIVE (NEGATIVE); UR UROBILINOGEN (Dip) NEGATIVE (NEGATIVE)
[2018-01-15] MEDS: LORAZEPAM 1 MG TAB PO (18:58)
[2018-01-15] MEDS: MONTELUKAST 10 MG TAB PO (20:10)
[2018-01-15] MEDS: traZODone 100 MG TAB PO (20:11)
[2018-01-16 06:23] LABS: ADD MAN DIFF? NO
[2018-01-16] MEDS: PANTOPRAZOLE (EC) 40 MG TAB PO (06:23)
[2018-01-16 06:27] LABS: WHITE BLOOD COUNT 10.1 10^3/ul (4.8-10.8)
[2018-01-16 06:27] LABS: BASOPHIL # 0.1 10^3/ul (0.0-0.1); BASOPHILS % 0.5 % (0.0-2.0); EOSINOPHILS # 0.5 10^3/ul (0.0-0.5); EOSINOPHILS % 5.1 % (0.0-7.0); HEMATOCRIT 35.4 % (37.0-47.0); LYMPHOCYTES # 1.9 10^3/ul (0.8-2.9); LYMPHOCYTES % 19.3 % (15.0-51.0); MEAN CORPUSCULAR HEMOGLOBIN 26.8 pg (29.0-33.0); MEAN CORPUSCULAR HGB CONC 31.1 g/dl (32.0-37.0); MEAN CORPUSCULAR VOLUME 86.1 fl (82.0-101.0); MEAN PLATELET VOLUME 10.7 fl (7.4-10.4); MONOCYTE # 0.9 10^3/ul (0.3-0.9); MONOCYTES % 9.2 % (0.0-11.0); NEUTROPHIL # 6.6 10^3/ul (1.6-7.5); NEUTROPHILS % 65.2 % (39.0-77.0); PLATELET COUNT 400 10^3/UL (140-415); RED BLOOD COUNT 4.11 10^6/ul (4.20-5.40); RED CELL DISTRIBUTION WIDTH 16.7 % (11.5-14.5)
[2018-01-16 06:49] LABS: PHOSPHORUS 3.9 mg/dl (2.5-4.9)
[2018-01-16 06:49] LABS: MAGNESIUM 1.8 mg/dl (1.7-2.5)
[2018-01-16 06:58] LABS: ANION GAP 12 (8-16); BLOOD UREA NITROGEN 7 mg/dl (7-20); CALCIUM 8.7 mg/dl (8.4-10.2); CARBON DIOXIDE 30 mmol/L (21-31); CHLORIDE 105 mmol/L (97-110); CREATININE 0.85 mg/dl (0.44-1.00); GLUCOSE 175 mg/dl (70-220); POTASSIUM 3.4 mmol/L (3.5-5.1); SODIUM 144 mmol/L (135-144)
[2018-01-16] MEDS: SERTRALINE 100 MG TAB PO (09:55)
[2018-01-16] MEDS: FERROUS SULFATE (EC) 325 MG TAB PO (09:55)
[2018-01-16] MEDS: LITHIUM CARBONATE 300 MG CAP PO ×3 (09:55→20:16)
[2018-01-16] MEDS: AMLODIPINE 5 MG TAB PO (09:55)
[2018-01-16] MEDS: MULTIVITAMINS THERAPEUTIC TAB PO (09:55)
[2018-01-16] MEDS: SALMETEROL/FLUTICASONE 250/50 INHA INH ×2 (09:55→20:16)
[2018-01-16] MEDS: METOPROLOL 25 MG TAB PO ×2 (09:56→20:21)
[2018-01-16] MEDS: FOLIC ACID 1 MG TAB PO (09:56)
[2018-01-16] MEDS: ENOXAPARIN 40 MG/0.4 ML SYG SC (09:56)
[2018-01-16] MEDS: THIAMINE 100 MG TAB PO (09:56)
[2018-01-16] MEDS: LORAZEPAM 1 MG TAB PO (13:10)
[2018-01-16] MEDS: traZODone 100 MG TAB PO (20:15)
[2018-01-16] MEDS: MONTELUKAST 10 MG TAB PO (20:15)
== END 2018-01-16 21:15 | DRG 640 ==
LOC: MS2 23:57 → PP2 01-15 18:30 → TEL 01-07 16:35 → E/R 21:31 → PP2 01-13 22:13
DX: E51.2 Wernicke's encephalopathy (principal); G92 Toxic encephalopathy; N39.0 Urinary tract infection, site not specified; F31.30 Bipolar disorder, current episode depressed, mild or moderate severity, unspecified; E87.0 Hyperosmolality and hypernatremia; N17.9 Acute kidney failure, unspecified; E86.0 Dehydration; Z78.1 Physical restraint status; F10.10 Alcohol abuse, uncomplicated; E87.6 Hypokalemia; R33.9 Retention of urine, unspecified; R13.12 Dysphagia, oropharyngeal phase; D50.9 Iron deficiency anemia, unspecified; D63.8 Anemia in other chronic diseases classified elsewhere; G47.00 Insomnia, unspecified
CPT/HCPCS: 36415; 36600; 70450; 71045; 80048; 80053; 80178; 80202; 81001; 81003; 82140; 82803; 82962; 83605; 83690; 83735; 84100; 84443; 84484; 85025; 87040; 87075; 87081; 87086; 92526; 92610; 93005; 95819; 96374; 96375; 97110; 97116; 97162; 97530; 99285-25